=== PATIENT | female | born 1960 | race Caucasian/White ===

== ENCOUNTER 2022-01-04 10:10 | Emergency (ER) | payer BC ==
[2022-01-04] MEDS ORDERED: Sodium Chloride 0.9% 10 ML Syringe FLUSH PRN (10:21)
[2022-01-04 11:04] LABS: ANION GAP 12.9 mmol/L (5-15); CHLORIDE,CL 104 mmol/L (98-107); ESTIMATED GFR 99 mL/min (>=60); SODIUM,NA 141 mmol/L (136-145)
== END 2022-01-04 11:40 | disposition home or self-care (01) ==
LOC: KA.ED 10:10
DX: G45.9 Transient cerebral ischemic attack, unspecified (principal); H53.2 Diplopia; E03.9 Hypothyroidism, unspecified; Z88.0 Allergy status to penicillin; Z88.1 Allergy status to other antibiotic agents; Z79.899 Other long term (current) drug therapy
CPT/HCPCS: 36415; 70450; 71045; 80053; 81003; 83605; 84484; 85025; 85379; 85730; 86140; 93005; 93010; 99285